=== PATIENT | male | born 1970 | race Caucasian/White ===

== ENCOUNTER 2020-09-11 01:21 | Inpatient (IN) | payer OTHER, SELFPAY ==
--- NOTE | ~2020-09-11 | CT_ITS ---
EXAMINATION: CT HEAD WITHOUT CONTRAST CLINICAL INFORMATION: Headache COMPARISON: None TECHNIQUE: Contiguous axial imaging was performed from the skull base to vertex without intravenous administration of contrast. This CT examination was performed using dose optimization techniques as appropriate, variously including the following: *Automated exposure control *Adjustment of mA and/or kV according to patient size (this includes techniques or standardized protocols for targeted exams where dose is matched to indication/reason for exam; i.e. extremities or head) *Use of iterative reconstruction technique DLP: 869 mGy-cm FINDINGS: There is no evidence of acute intracranial hemorrhage or territorial infarction. No abnormal mass effect or midline shift is seen. Can to white matter differentiation is well preserved. No extra-axial fluid collections are identified. The ventricles are normal in size. There is no abnormal attenuation within the brain parenchyma. The osseous structures and soft tissues are normal. The mastoid air cells and visualized portions of the paranasal sinuses are well aerated. CT/CT head/brain wo con IMPRESSION: No acute intracranial pathology.
--- NOTE | ~2020-09-11 | CT_ITS ---
EXAMINATION: CT ANGIOGRAM NECK WITH CONTRAST CT ANGIOGRAM BRAIN WITH CONTRAST CLINICAL INFORMATION: TIA. COMPARISON: Head CT performed just prior. TECHNIQUE: Test bolus sequences followed by intravenous administration 70 mL of Omnipaque 350. Helical imaging was performed in the axial plane from the thoracic inlet to the skull vertex. Delayed postcontrast imaging of the head was also performed. The data was processed at the radiology technologist workstation for generation of MIP sequences. Angled MIPs and volume rendered reformatted images were also generated at an offline 3D workstation. Stenoses are assessed in accordance with NASCET criteria unless otherwise indicated. This CT examination was performed using dose optimization techniques as appropriate, variously including the following: *Automated exposure control *Adjustment of mA and/or kV according to patient size (this includes techniques or standardized protocols for targeted exams where dose is matched to indication/reason for exam; i.e. extremities or head) *Use of iterative reconstruction technique DLP: 1697 mGy-cm FINDINGS: Head CT: There is no intracranial hemorrhage, large acute infarction, or mass lesion. The ventricles are normal in size and configuration without evidence of hydrocephalus. There is no abnormal enhancement. The dural venous sinuses are normally opacified. The visualized paranasal sinuses and mastoid air cells are clear. Neck CTA: There is a normal aortic arch with no significant stenosis of the great vessel origins. The common and internal carotid arteries are normal in course and caliber. Both vertebral arteries are widely patent throughout their extracranial cervical course. Head CTA: No intracranial aneurysm is seen. The intracranial internal carotid arteries appear normal. The anterior cerebral artery, anterior communicating artery, and middle cerebral arteries appear normal. The intradural vertebral arteries and basilar artery appear normal. The posterior cerebral arteries appear normal. origin of the left posterior cerebral artery is noted. Non-vascular findings: The cervical spine appears intact. No significant cervical soft tissue abnormality is seen CT/CT angio head neck IMPRESSION: CT head: No intracranial hemorrhage or large acute infarction. CTA neck: No hemodynamically significant stenosis in the major arteries of the neck. CTA head: No large vessel occlusion or significant stenosis within the intracranial circulation.
--- NOTE | ~2020-09-11 | US_ITS ---
EXAMINATION: US EXTRACRANIAL CAROTID DUPLEX, BILATERAL CLINICAL INFORMATION: TIA COMPARISON: None TECHNIQUE: Real-time ultrasound and Doppler techniques (integrating B-mode 2-D vascular images, Doppler spectral analysis and color-flow Doppler imaging) were utilized to interrogate the extracranial carotid arteries, the vertebral arteries and proximal subclavian arteries bilaterally. The degree of stenosis is determined by criteria similar to NASCET. FINDINGS: Right Side: 1. There is trace atherosclerotic plaque seen in the bifurcation/proximal ICA region. 2. The common carotid artery PSV proximally is 165 cm/s and distally 120 cm/s. 3. The proximal internal carotid artery velocities are 56.7 cm/s systolic and 18.9 cm/s diastolic. 4. The proximal external carotid artery PSV is 87.8 cm/s. 5. The vertebral artery shows antegrade flow. 6. The subclavian artery waveforms are normal, peak systolic velocity 149 cm/s. Left Side: 1. There is trace atherosclerotic plaque seen in the bifurcation/proximal ICA region. 2. The common carotid artery PSV proximally is 207 cm/s and distally 125 cm/s. 3. The proximal internal carotid artery velocities are 75.2 cm/s systolic and 13.7 cm/s diastolic. 4. The proximal external carotid artery PSV is 77.7 cm/s. 5. The vertebral artery shows antegrade flow. 6. The subclavian artery waveforms are normal, peak systolic velocity 204 cm/s. US/US carotid duplex BI IMPRESSION: 1. RIGHT: Minimal, non-hemodynamically significant stenosis of the proximal right internal carotid artery corresponding to a 0-49% stenosis by velocity criteria. 2. LEFT: Minimal, non-hemodynamically significant stenosis of the proximal left internal carotid artery corresponding to a 0-49% stenosis by velocity criteria.
[2020-09-11 01:46] VITALS: BP 114/51; PULSE 77; RESP 18; TEMP 37.2; O2SAT 94; BMI 40.1
[2020-09-11 02:03] LABS: Glucose, Whole Blood 307 mg/dL (60-115)
[2020-09-11 02:07] VITALS: BP 120/73; PULSE 76; O2SAT 100
[2020-09-11 02:18] LABS: Basophils Percent Auto 0.5 % (0-2); Eosinophils Absolute Auto 0.2 X10*3/uL (0.0-0.4); Eosinophils Percent Auto 2.1 % (0-4); Hematocrit 36.9 % (42-52); Hemoglobin 12.8 g/dl (14.0-18.0); Imm Gran Abs Auto 0.03 X10*3/uL (0.00-0.03); Imm Gran Pct Auto 0.4 % (0.0-0.4); Lymphocytes Absolute Auto 2.6 X10*3/uL (1.2-4.9); Lymphocytes Percent Auto 35.9 % (20-40); MANUAL DIFF FLAG NO; Mean Corpuscular HGB Conc 34.7 g/dl (31.0-36.0); Mean Corpuscular Hemoglobin 31.4 pg (27.0-33.0); Mean Corpuscular Volume 90.7 fL (80-98); Mean Platelet Volume 9.4 fL (9.4-12.4); Monocytes Absolute Auto 0.5 X10*3/uL (0.1-1.2); Monocytes Percent Auto 7.4 % (2-11); Neutrophils Absolute Auto 3.9 X10*3/uL (2.0-8.3); Neutrophils Percent Auto 53.7 % (45-73); Platelet Count 241 X10*3/uL (160-400); Red Blood Count 4.07 X10*6/uL (4.60-5.80); White Blood Count 7.3 X10*3/uL (4.8-10.8)
[2020-09-11 02:24] LABS: Prothrombin Time 12.2 SEC (10.8-13.0)
[2020-09-11 02:46] LABS: Alanine Aminotransferase 41 U/L (0-40); Albumin Level 4.3 g/dL (3.5-5.0); Alkaline Phosphatase 125 U/L (39-117); Anion Gap 15 (12-20); Aspartate Amino Transferase 18 U/L (5-37); Bilirubin Total 0.6 mg/dL (0.0-1.0); Blood Urea Nitrogen 18 mg/dL (9-16); Calcium 9.3 mg/dL (8.4-10.2); Carbon Dioxide 24 mmol/L (22-29); Chloride 102 mmol/L (96-108); Creatinine Clr Calc Pharmacy 131.1; Estimated Glomerular Filt Rate > 60; Glucose Random 315 mg/dL (60-115); Potassium 4.1 mmol/L (3.3-5.1); Sodium 137 mmol/L (135-145); Total Protein 6.4 g/dL (6.5-8.0)
--- NOTE | 2020-09-11 03:09 | ED.GENADULT ---
HPI - General Adult General Chief complaint: General Medical Stated complaint: Vision loss Time Seen by Provider: 09/11/20 03:09 History of Present Illness HPI narrative: 50-year-old male with a history diabetes, hypertension, high cholesterol. Previous history of smoking. Patient has sudden onset of changes and vision over the left eye. The medial aspect of the visual field is gone away along with weakness to the left leg. The symptoms seems to have resolved after approximately 30 minutes. Patient had no symptom on arrival in emergency department. There was no fever no chills. No chest pain or shortness breath no diaphoresis. Patient is from home. No coughing or congestion or upper respiratory symptoms. No history of TIAs in the past. Positive history of hypertension, high cholesterol. No family history of coronary artery disease. No travel history. Patient is from home. Related Data Home Medications Medication Instructions Recorded Confirmed amlodipine 1 tab PO DAILY 09/11/20 09/11/20 atorvastatin 1 tab PO DAILY 09/11/20 09/11/20 citalopram 1 tab PO DAILY 09/11/20 09/11/20 losartan 1 tab PO DAILY 09/11/20 09/11/20 Allergies Allergy/AdvReac Type Severity Reaction Status Date / Time No Known Allergies Allergy Verified 09/11/20 02:21 [No Known Allergies*] Review of Systems Review of Systems: Constitutional: No Weight loss, No Fever, No Chills, No Night Sweats, No Fatigue, No Malaise ENT/Mouth: No Hearing loss, No Ear Pain, No Nasal Congestion, No Sinus Pain, No Hoarseness, No sore throat, No Rhinorrhea, No Swallowing Difficulty Eyes: No Eye Pain, No Swelling, No Redness, No Foreign Body, No Discharge, positive Vision Changes Cardiovascular: No Chest Pain, No SOB, No Dyspnea on Exertion, No Orthopnea, No Edema, No Palpitations Respiratory: No Cough, No Sputum, No Wheezing, No Smoke Exposure, No Dyspnea Gastrointestinal: No Nausea, No Vomiting, No Diarrhea, No Constipation, No abdominal Pain, No Hematochezia, No Melena Genitourinary: no irregular bleeding, No Dysuria, No Urinary Frequency, No Hematuria, No Urinary Incontinence, No Urgency, No Flank Pain, No Urinary Flow Changes, No Hesitancy Musculoskeletal: No joint pain, No Myalgias, No Joint Swelling Skin: No Skin Lesions, No rash Neuro: No Weakness, No Numbness, No Paresthesias, No Loss of Consciousness, No Dizziness, No Headache Psych: No Anxiety/Panic, No Depression, No SI/HI/AH/VH, No Social Issues, Heme/Lymph: No Bruising, No Bleeding,No Lymphadenopathy Endocrine: No Polyuria, No Polydipsia, No Temperature Intolerance [facility] Past Medical History Attestation statement: The following information was validated with the patient. Medical History High blood pressure History of prediabetes Obese Social History Social History Advance Directives: No Physical Exam Vital Signs: Vital Signs: Last Vital Signs Temp 98.9 F 09/11/20 01:46 Pulse 72 09/11/20 04:00 Resp 15 09/11/20 04:00 BP 111/59 L 09/11/20 04:00 Pulse Ox 96 09/11/20 04:00 Body Mass Index 40.1 Appearance: Alert. Oriented X3. No acute distress. Eyes: Pupils equal, round and reactive to light. ENT: Pharynx normal. Neck: Normal inspection. Neck supple. No lymph nodes noted. No crepitus CVS: Normal heart rate and rhythm. Pulses normal. Normal S1 and S2 Respiratory: No respiratory distress. Breath sounds normal. No Wheezing. No rales Abdomen: Soft and nontender. No rigidity. No distention. good BS x4 Skin: Skin warm and dry. Normal skin color. Normal skin turgor. Extremities: No lower extremity edema. Neurovascular intact to all extremities. No Lacerations. No Rash Neuro: Oriented X 3. No sensory deficit. Moving all extermities. No slurred speech. Visual feel which patient claims were office completely back to normal. There is no weakness in upper lower extremity. NIH Stroke Scale Internal: Initial- Upon Arrival Level of Consciousness: Responds only with reflex motor or autonomic effects, or unresponsive Level of Consciousness Questions: Answers both questions correctly Level of Consciousness Commands: Performs both tasks correctly Best Gaze: Normal Visual: No visual loss Facial Palsy: Normal Motor Arm (Right): No drift Motor Arm (Left): No drift Motor Leg (Right): No drift Motor Leg (Left): No drift Limb Ataxia: Absent Sensory: Normal Best Language: No aphasia Dysarthia: Normal Extinction and Inattention: No abnormality Score: 3 Medical Decision Making MDM Narrative Medical decision making narrative: Well appearing. No acute distress. Moving all extremities. Neurologically intact. Positive changes in vision and left-sided weakness earlier. That has resolved. Question TIA. Will admit for further monitoring. Currently in stable condition. CT the head was grossly negative for any acute evidence of bleeding. Patient is neurologically intact. NIH stroke scale is 0. Will admit for TIA close monitoring. EKG appears normal. In stable condition. Case discussed with hospitalist. Old record reviewed. Lab Data Result diagrams: 09/11/20 02:05 09/11/20 02:05 Labs: Lab Results 09/11/20 09/11/20 09/11/20 Range/Units 01:59 02:05 02:05 WBC 7.3 (4.8-10.8) X10*3/uL RBC 4.07 L (4.60-5.80) X10*6/uL Hgb 12.8 L (14.0-18.0) g/dl Hct 36.9 L (42-52) % MCV 90.7 (80-98) fL MCH 31.4 (27.0-33.0) pg MCHC 34.7 (31.0-36.0) g/dl RDW 12.0 (11.0-16.0) % Plt Count 241 (160-400) X10*3/uL MPV 9.4 (9.4-12.4) fL Immature Gran % (Auto) 0.4 (0.0-0.4) % Neut % (Auto) 53.7 (45-73) % Lymph % (Auto) 35.9 (20-40) % [place] % (Auto) 7.4 (2-11) % Eos % (Auto) 2.1 (0-4) % Baso % (Auto) 0.5 (0-2) % Lymph # (Auto) 2.6 (1.2-4.9) X10*3/uL [place] # (Auto) 0.5 (0.1-1.2) X10*3/uL Eos # (Auto) 0.2 (0.0-0.4) X10*3/uL Baso # (Auto) 0.0 (0.0-0.2) X10*3/uL Abs Immat Gran (auto) 0.03 (0.00-0.03) X10*3/uL Absolute Neuts (auto) 3.9 (2.0-8.3) X10*3/uL Absolute Nucleated RBC 0.000 (0.0-0.012) X10*3/uL Nucleated RBC % (auto) 0.0 (0.0-0.2) /100WBC PT 12.2 (10.8-13.0) SEC INR 1.0 (0.9-1.1) Sodium (135-145) mmol/L Potassium (3.3-5.1) mmol/L Chloride (96-108) mmol/L Carbon Dioxide (22-29) mmol/L Anion Gap (12-20) BUN (9-16) mg/dL Creatinine (0.5-1.4) mg/dL Estim Creat Clear Calc Estimated GFR POC Glucose 307 H (60-115) mg/dL Random Glucose (60-115) mg/dL Calcium (8.4-10.2) mg/dL Total Bilirubin (0.0-1.0) mg/dL AST (5-37) U/L ALT (0-40) U/L Alkaline Phosphatase (39-117) U/L Total Protein (6.5-8.0) g/dL Albumin (3.5-5.0) g/dL 09/11/20 Range/Units 02:05 WBC (4.8-10.8) X10*3/uL RBC (4.60-5.80) X10*6/uL Hgb (14.0-18.0) g/dl Hct (42-52) % MCV (80-98) fL MCH (27.0-33.0) pg MCHC (31.0-36.0) g/dl RDW (11.0-16.0) % Plt Count (160-400) X10*3/uL MPV (9.4-12.4) fL Immature Gran % (Auto) (0.0-0.4) % Neut % (Auto) (45-73) % Lymph % (Auto) (20-40) % [place] % (Auto) (2-11) % Eos % (Auto) (0-4) % Baso % (Auto) (0-2) % Lymph # (Auto) (1.2-4.9) X10*3/uL [place] # (Auto) (0.1-1.2) X10*3/uL Eos # (Auto) (0.0-0.4) X10*3/uL Baso # (Auto) (0.0-0.2) X10*3/uL Abs Immat Gran (auto) (0.00-0.03) X10*3/uL Absolute Neuts (auto) (2.0-8.3) X10*3/uL Absolute Nucleated RBC (0.0-0.012) X10*3/uL Nucleated RBC % (auto) (0.0-0.2) /100WBC PT (10.8-13.0) SEC INR (0.9-1.1) Sodium 137 (135-145) mmol/L Potassium 4.1 (3.3-5.1) mmol/L Chloride 102 (96-108) mmol/L Carbon Dioxide 24 (22-29) mmol/L Anion Gap 15 (12-20) BUN 18 H (9-16) mg/dL Creatinine 0.95 (0.5-1.4) mg/dL Estim Creat Clear Calc 131.1 Estimated GFR > 60 POC Glucose (60-115) mg/dL Random Glucose 315 H (60-115) mg/dL Calcium 9.3 (8.4-10.2) mg/dL Total Bilirubin 0.6 (0.0-1.0) mg/dL AST 18 (5-37) U/L ALT 41 H (0-40) U/L Alkaline Phosphatase 125 H (39-117) U/L Total Protein 6.4 L (6.5-8.0) g/dL Albumin 4.3 (3.5-5.0) g/dL ECG Data Interpretation: Sinus heart rate is 80 [place] QRS QT within normal limits there is no acute ST segment elevated noted Discharge Plan Discharge Prescriptions: No Action losartan 50 mg tablet 1 tab PO DAILY RF: 0 atorvastatin 40 mg tablet 1 tab PO DAILY RF: 0 citalopram 20 mg tablet 1 tab PO DAILY RF: 0 amlodipine 10 mg tablet 1 tab PO DAILY RF: 0
--- NOTE | 2020-09-11 03:20 | ECG_ITS ---
Test Reason : WEAKNESS.CP.VISION Blood Pressure : / mmHG Vent. Rate : 079 BPM Atrial Rate : 079 BPM P-R Int : 148 ms QRS Dur : 092 ms QT Int : 386 ms P-R-T Axes : 017 -01 014 degrees QTc Int : 442 ms Normal sinus rhythm Minimal voltage criteria for LVH, may be normal variant Borderline ECG No previous ECGs available Referred By: Janett Padilla Electronically Signed By:NOHEMY MARTELL MD
[2020-09-11 04:00] VITALS: BP 111/59; PULSE 72; RESP 15; O2SAT 96
--- NOTE | 2020-09-11 04:36 | P.HPHOSP_ITS ---
History of Present Illness Date of Service: 09/11/20 Chief Complaint: Left leg weakness: 50-year-old male with a past medical history of hypertension, hyperlipidemia, depression, history of tobacco use presented to the hospital with a chief complaint of left eye vision changes-reported that the medial side of his vision he was not able to see; present also noted left leg weakness. Denies any numbness tingling. Symptoms lasted for about 30 minutes. Denies any associated chest pain lightheadedness dizziness. Denies any chest pain or palpitations. Denies any GI or symptoms. Denies any headaches. Denies any recent travel or sick contacts. Review of all other systems is negative except mentioned above ER course: Per ER team patient symptoms resolved. Currently patient exam is nonfocal. CT head showed no acute findings. Vitals stable. Admitted to the hospital for further management. [facility] Medical History High blood pressure History of prediabetes Obese Meds Allergies Allergy/AdvReac Type Severity Reaction Status Date / Time No Known Allergies Allergy Verified 09/11/20 02:21 [No Known Allergies*] Active Medications: Current Medications Generic Name Dose Route Start Last Admin Trade Name Freq PRN Reason Stop Dose Admin Acetaminophen 650 mg 09/11/20 04:29 Acetaminophen 325 Mg Tablet PO Q6H PRN Pain, Mild (Pain Scale 1-3) Amlodipine Besylate 10 mg 09/11/20 09:00 Amlodipine Besylate 10 Mg Tablet PO DAILY [facility] Protocol Aspirin 81 mg 09/11/20 09:00 Aspirin Enteric Coated 81 Mg Tablet.Dr PO DAILY [facility] Atorvastatin Calcium 40 mg 09/11/20 09:00 Atorvastatin Calcium 40 Mg Tablet PO DAILY [facility] Losartan Potassium 50 mg 09/11/20 09:00 Losartan Potassium 50 Mg Tablet PO DAILY [facility] Protocol Non-Formulary Medication 1 tab 09/11/20 09:00 Citalopram PO DAILY [facility] Sodium Chloride 3 ml 09/11/20 08:00 0.9 % Sodium Chloride Flush 3 Ml Syringe IVFLUSH QSHIFT [facility] Home Medications Medication Instructions Recorded Confirmed Last Taken Type amlodipine 1 tab PO DAILY 09/11/20 09/11/20 09/10/20 History citalopram 1 tab PO DAILY 09/11/20 09/11/20 09/10/20 History losartan 1 tab PO DAILY 09/11/20 09/11/20 09/10/20 History Physical Exam Vital Signs and Narrative: Vital Signs: Last Vital Signs Temp 98.9 F 09/11/20 01:46 Pulse 72 09/11/20 04:00 Resp 15 09/11/20 04:00 BP 111/59 L 09/11/20 04:00 Pulse Ox 96 09/11/20 04:00 Body Mass Index 40.1 Gen: Appears be in no acute distress HEENT: NCAT, Moist mucosa. CONSTANTIN Pulmonary: Vesicular breath sounds, fair air entry CVS: Normal S1-S2 Abdomen: BS+, Soft, Nontender Extremities: Warm well perfused Neuro: Alert and awake. Nonfocal exam Results Labs CBC and Chem 7: 09/11/20 06:36 09/11/20 06:36 Labs: Laboratory Results - last 24 hr 09/11/20 09/11/20 09/11/20 01:59 02:05 02:05 MCV 90.7 MCH 31.4 MCHC 34.7 RDW 12.0 Plt Count 241 MPV 9.4 Immature Gran % (Auto) 0.4 Neut % (Auto) 53.7 Lymph % (Auto) 35.9 [place] % (Auto) 7.4 Eos % (Auto) 2.1 Baso % (Auto) 0.5 Lymph # (Auto) 2.6 [place] # (Auto) 0.5 Eos # (Auto) 0.2 Baso # (Auto) 0.0 Abs Immat Gran (auto) 0.03 Absolute Neuts (auto) 3.9 Absolute Nucleated RBC 0.000 Nucleated RBC % (auto) 0.0 PT 12.2 INR 1.0 Anion Gap Estim Creat Clear Calc Estimated GFR POC Glucose 307 H Random Glucose Calcium Total Bilirubin AST ALT Alkaline Phosphatase Total Protein Albumin 09/11/20 02:05 MCV MCH MCHC RDW Plt Count MPV Immature Gran % (Auto) Neut % (Auto) Lymph % (Auto) [place] % (Auto) Eos % (Auto) Baso % (Auto) Lymph # (Auto) [place] # (Auto) Eos # (Auto) Baso # (Auto) Abs Immat Gran (auto) Absolute Neuts (auto) Absolute Nucleated RBC Nucleated RBC % (auto) PT INR Anion Gap 15 Estim Creat Clear Calc 131.1 Estimated GFR > 60 POC Glucose Random Glucose 315 H Calcium 9.3 Total Bilirubin 0.6 AST 18 ALT 41 H Alkaline Phosphatase 125 H Total Protein 6.4 L Albumin 4.3 Imaging Radiologist's Impressions: Impressions Head CT 09/11/20 03:20 IMPRESSION: No acute intracranial pathology. Assessment and Plan (1) TIA (transient ischemic attack): Status: Acute 50-year-old male with a past medical history of hypertension, hyperlipidemia, depression, ex-smoker presented to the hospital with a chief c omplaint of left eye visual field deficits/left leg weakness. Symptoms lasted for 30 minutes and subsequently resolved. Admitted for possible TIA. TIA: Patient's currently asymptomatic. Neuro checks. Telemetry. Cycle cardiac enzymes. Echocardiogram with bubble study. Neurology consult for fu rther recommendations. Will also obtain carotid duplex. Will keep the patient on aspirin. Patient is already on statin at home. Hypertension/hyperlipidemia: Continue home medications. DVT prophylaxis: SCD boots Code status: Full code
[2020-09-11 05:33] LABS: COVID-19 Test Negative (Negative)
[2020-09-11 05:51] VITALS: BP 128/63; PULSE 73; RESP 15; O2SAT 93
[2020-09-11] MEDS: Aspirin 325 MG TABLET PO (05:57)
[2020-09-11 06:48] LABS: MANUAL DIFF FLAG NO
[2020-09-11 06:58] LABS: Basophils Percent Auto 0.5 % (0-2); Eosinophils Absolute Auto 0.1 X10*3/uL (0.0-0.4); Eosinophils Percent Auto 1.9 % (0-4); Hematocrit 35.8 % (42-52); Hemoglobin 12.2 g/dl (14.0-18.0); Imm Gran Abs Auto 0.03 X10*3/uL (0.00-0.03); Imm Gran Pct Auto 0.5 % (0.0-0.4); Lymphocytes Absolute Auto 2.2 X10*3/uL (1.2-4.9); Lymphocytes Percent Auto 35.7 % (20-40); Mean Corpuscular HGB Conc 34.1 g/dl (31.0-36.0); Mean Corpuscular Hemoglobin 30.8 pg (27.0-33.0); Mean Corpuscular Volume 90.4 fL (80-98); Mean Platelet Volume 9.6 fL (9.4-12.4); Monocytes Absolute Auto 0.5 X10*3/uL (0.1-1.2); Monocytes Percent Auto 8.1 % (2-11); Neutrophils Absolute Auto 3.3 X10*3/uL (2.0-8.3); Neutrophils Percent Auto 53.3 % (45-73); Platelet Count 237 X10*3/uL (160-400); Red Blood Count 3.96 X10*6/uL (4.60-5.80); Red Cell Distribution Width 11.9 % (11.0-16.0); White Blood Count 6.2 X10*3/uL (4.8-10.8)
--- NOTE | 2020-09-11 07:00 | PC.NURSE ---
report taken from james younger pt resting in bed supine att, rr even unlabored. pt easily alert to verbal stimuli, very pleasant in convo. pt being admitted for ?tia, neuros grossly intact, pt appears in no apparent distress. awaiting hospitalist eval and bed assignment. wctm.
--- NOTE | 2020-09-11 07:27 | PC.NURSE ---
ambulated to and from bathroom using steady gait. breakfast tray placed at pt bedside.
[2020-09-11 07:31] LABS: Troponin-I High Sensitivity < 3.5 ng/L (<3.5-35.0)
[2020-09-11 07:35] LABS: Anion Gap 16 (12-20); Blood Urea Nitrogen 18 mg/dL (9-16); Carbon Dioxide 20 mmol/L (22-29); Chloride 105 mmol/L (96-108); Cholesterol 182 mg/dL; Estimated Glomerular Filt Rate > 60; Glucose Random 293 mg/dL (60-115); HDL Cholesterol 28 mg/dL; LDL Cholesterol Calculated 95 mg/dl; Potassium 4.3 mmol/L (3.3-5.1); Sodium 137 mmol/L (135-145); Triglycerides 299 mg/dL
[2020-09-11 09:28] VITALS: BP 128/63; PULSE 86; O2SAT 94
--- NOTE | 2020-09-11 11:20 | CA_ITS ---
Transthoracic Echocardiogram Patient (Last, First, Middle): Artemio Epperson, Gender: Male Date of : 1970 Age: 50 Procedure Date: 09/11/2020 Procedure Type: Transthoracic Echocardiogram Location: ER Height: 180.34 cm Weight: 130.64 kg BSA: 2.46 m2 Heart Rate: bpm Quitline Counselor: HUNTER Referring MD: Herber Cheng MD Customs Inspector: Jim Mirza MD Symptoms: tia Study Quality: Technically Difficult ECG Rhythm: Sinus Conclusions: - 1. Technically very limited study due to patient's body habitus with limited endocardial definition 2. LV systolic function appears to be normal with LVEF of 60 65% with normal diastolic filling 3. Cardiac valves not well visualized but within normal limits cardiac valvular Doppler Findings Left Ventricle Normal left ventricular cavity size. The left ventricular systolic function is normal. The visually estimated ejection fraction is between 60-65%. Regional wall motion abnormalities can not be excluded due to suboptimal endocardial definition. Spectral Doppler is indicative of a normal filling pattern. Right Ventricle Mildly increased right ventricular cavity size. Atria The left atrium was not well visualized. Interatrial shunt cannot be excluded. The right atrium was not well visualized. Aortic Valve The aortic valve was not well visualized. There is no aortic valve stenosis. There is no aortic valve regurgitation. Mitral Valve Likely normal mitral valve structure and function. There is no mitral valve regurgitation. There is no mitral valve stenosis. Pulmonic Valve The pulmonic valve was not well visualized. Tricuspid Valve The tricuspid valve was not well visualized. Tricuspid regurgitation envelope is inadequate for calculation of right ventricular systolic pressure. Great Vessels The aorta was not well visualized. The pulmonary artery was not well visualized. Venous The inferior vena cava is normal in size and collapses greater than 50% with inspiration. Pericardium/Pleural The pericardium was not well visualized. Prior Study Comparison No prior study available for comparison. Recommendations, Care & Conclusions Recommend contrast in the future to improve endocardial definition and contrast study to evaluate intracardiac shunting. Updated in Other Vendor System with Status of Final Jim Mirza MD electronically signed on 09/11/2020 3:11:41 PM with status of Final
[2020-09-11] MEDS: iohexoL 350 MG/ML 100 ML INFUS..BTL IV (15:16)
--- NOTE | 2020-09-11 16:31 | P.DS_ITS ---
DS: Providers Provider Date of Service: 09/11/20 Date of admission: 09/11/20 04:29 Primary care physician: Dejan Gaona MD Consults: 09/11/20 04:30 Consult to Neurology Routine Consulting Provider: Paul Li Reason for consultation: left Eye blurry vision; left leg weakness; DS: Diagnosis Discharge Diagnosis (1) TIA (transient ischemic attack): Status: Acute DS: Medications Discharge Medications Home Medications: Home Medications Medication Instructions Recorded Confirmed amlodipine 1 tab PO DAILY 09/11/20 09/11/20 citalopram 1 tab PO DAILY 09/11/20 09/11/20 losartan 1 tab PO DAILY 09/11/20 09/11/20 Previous Rx's Medication Instructions Recorded aspirin 81 mg PO BEDTIME #30 tab 09/11/20 atorvastatin 60 mg PO BEDTIME #90 tab 09/11/20 DS: Summary Hospital Course Hospital Course: 50-year-old male with a past medical history of hypertension, hyperlipidemia, depression, history of tobacco use presented to the hospital with a chief complaint of left eye vision changes-reported that the medial side of his vision he was not able to see; present also noted left leg weakness. Denies any numbness tingling. Symptoms lasted for about 30 minutes. Denies any associated chest pain lightheadedness dizziness. Denies any chest pain or palpitations. ER course: Per ER team patient symptoms resolved. Currently patient exam is nonfocal. CT head showed no acute findings. Vitals stable. Admitted to the hospital for fur ther management. On my interview patient reported that he had lacrimation of his eyes and nose as well as a mild headache that was around his left eye. He currently has no neurological symptoms, his vision is normal with no deficits. CT angiogram of head and neck was negative, lipid battery shows an LDL of 95. Case was discussed with Neurology, given the fact the our MRI machine is currently not functioning patient will be discharged on aspirin, atorvastatin will be increased to 60 mg and to follow-up with PCP for outpatient MRI. Patient notified and he will follow-up with PCP to also refer him to Neurology. Time Spent with Patient Time attestation: Total time spent providing and/or coordinating discharge servi wesly: Discharge coordination time: Greater than 30 minutes Quality: Stroke Does the patient have a stroke diagnosis?: Yes Reason for No Anti-thrombotic at DC: N/A - Med Ordered Reason for No Anticoagulant at DC: Drug treatment not indicated Reason Not Initiating IV-Tpa: Drug treatment not indicated Reason for No Anti-thrombotic by Day Two: Drug treatment not indicated Reason for No Statin at DC: N/A - Med Ordered Physical Exam Vital Signs: Vital Signs: Last Vital Signs Temp 98.9 F 09/11/20 01:46 Pulse 86 09/11/20 09:28 Resp 15 09/11/20 05:51 BP 128/63 09/11/20 09:28 Pulse Ox 94 09/11/20 09:28 Body Mass Index 40.1 Const: General: cooperative and no acute distress Orie ntation/consciousness: patient oriented x3 Eyes: General: appearance normal, both eyes and all related structures Resp: Effort & Inspection: normal respiratory effort and able to speak in complete sentences Cardio: Rate: regular rate Rhythm: regular rhythm GI: Palpation (GI): Soft to palpation Auscultation: normal bowel sounds Skin: General skin exam: no rashes or lesions noted Neuro: Other: No neurological deficits, no visual defect, strength is 5/5 in all extremities General: patient oriented x3 Cognition (Neuro): normal cogni tion Extrem: General: Yes normal to inspection and Yes no pedal edema DS: Data Data Completed and Pending Labs on day of discharge: Laboratory Results - last 24 hr 09/11/20 09/11/20 09/11/20 01:59 02:05 02:05 WBC 7.3 RBC 4.07 L Hgb 12.8 L Hct 36.9 L MCV 90.7 MCH 31.4 MCHC 34.7 RDW 12.0 Plt Count 241 MPV 9.4 Immature Gran % (Auto) 0.4 Neut % (Auto) 53.7 Lymph % (Auto) 35.9 [place] % (Auto) 7.4 Eos % (Auto) 2.1 Baso % (Auto) 0.5 Lymph # (Auto) 2.6 [place] # (Auto) 0.5 Eos # (Auto) 0.2 Baso # (Auto) 0.0 Abs Immat Gran (auto) 0.03 Absolute Neuts (auto) 3.9 Absolute Nucleated RBC 0.000 Nucleated RBC % (auto) 0.0 PT 12.2 INR 1.0 Sodium Potassium Chloride Carbon Dioxide Anion Gap BUN Creatinine Estim Creat Clear Calc Estimated GFR POC Glucose 307 H Random Glucose Calcium Total Bilirubin AST ALT Alkaline Phosphatase Troponin I High Sens Total Protein Albumin Triglycerides Cholesterol LDL Cholesterol, Calc HDL Cholesterol COVID-19 (TANESHA) COVID-19 HeyAnita Com 09/11/20 09/11/20 09/11/20 02:05 05:09 06:36 WBC RBC Hgb Hct MCV MCH MCHC RDW Plt Count MPV Immature Gran % (Auto) Neut % (Auto) Lymph % (Auto) [place] % (Auto) Eos % (Auto) Baso % (Auto) Lymph # (Auto) [place] # (Auto) Eos # (Auto) Baso # (Auto) Abs Immat Gran (auto) Absolute Neuts (auto) Absolute Nucleated RBC Nucleated RBC % (auto) PT INR Sodium 137 Potassium 4.1 Chloride 102 Carbon Dioxide 24 Anion Gap 15 BUN 18 H Creatinine 0.95 Estim Creat Clear Calc 131.1 Estimated GFR > 60 POC Glucose Random Glucose 315 H Calcium 9.3 Total Bilirubin 0.6 AST 18 ALT 41 H Alkaline Phosphatase 125 H Troponin I High Sens < 3.5 Total Protein 6.4 L Albumin 4.3 Triglycerides Cholesterol LDL Cholesterol, Calc HDL Cholesterol COVID-19 (TANESHA) Negative COVID-19 Clin Com See Note 09/11/20 09/11/20 06:36 06:36 WBC 6.2 RBC 3.96 L Hgb 12.2 L Hct 35.8 L MCV 90.4 MCH 30.8 MCHC 34.1 RDW 11.9 Plt Count 237 MPV 9.6 Immature Gran % (Auto) 0.5 H Neut % (Auto) 53.3 Lymph % (Auto) 35.7 [place] % (Auto) 8.1 Eos % (Auto) 1.9 Baso % (Auto) 0.5 Lymph # (Auto) 2.2 [place] # (Auto) 0.5 Eos # (Auto) 0.1 Baso # (Auto) 0.0 Abs Immat Gran (auto) 0.03 Absolute Neuts (auto) 3.3 Absolute Nucleated RBC 0.000 Nucleated RBC % (auto) 0.0 PT INR Sodium 137 Potassium 4.3 Chloride 105 Carbon Dioxide 20 L Anion Gap 16 BUN 18 H Creatinine 0.83 Estim Creat Clear Calc 150.0 Estimated GFR > 60 POC Glucose Random Glucose 293 H Calcium 9.0 Total Bilirubin AST ALT Alkaline Phosphatase Troponin I High Sens Total Protein Albumin Triglycerides 299 Cholesterol 182 LDL Cholesterol, Calc 95 HDL Cholesterol 28 COVID-19 (TANESHA) COVID-19 Clin Com Discharge Plan Discharge Patient Disposition: Home, Self-Care Discharge Diagnosis: cluster headache vs TIA Referrals: Dejan Gaona MD [Primary Care Provider] - 1 Week Paul Li MD [Physician] - 1 Week Discharge Medications: New atorvastatin 40 mg Tablet 60 mg PO BEDTIME Qty: 90 RF: 0 aspirin 81 mg Tablet,Delayed Release (Dr/Ec) 81 mg PO BEDTIME Qty: 30 RF: 0 Continued losartan 50 mg tablet 1 tab PO DAILY RF: 0 citalopram 20 mg tablet 1 tab PO DAILY RF: 0 amlodipine 10 mg tablet 1 tab PO DAILY RF: 0 Discontinued atorvastatin 40 mg tablet 1 tab PO DAILY RF: 0 Discharge Orders: Discharge Order (Routine); Ordered 09/11/20 Ordered By: Lucien Valdivia Diet: advance to usual diet Activity on Discharge: As tolerated Stand Alone Forms: Patient Portal Discharge page Care Plan Goals: Recovery, avoid hospitalization Health Concerns: recurrence of symptoms Plan of Treatment: Please started taking high dose statin 60 mg as well as ASA. follow with PCP to have outpatient MRI scheduled Assessment: Presented with vision changes possibly secondary to transient ischemic event versus cluster headache Please follow-up with PCP to order MRI outpatient Start taking atorvastatin 60 mg at bedtime, aspirin 81 mg daily
== END 2020-09-11 16:56 | disposition home or self-care (01) | DRG 47 ==
LOC: HO.ED 03:03 → HO.EDOVER 06:17 → HO.IMC 15:49
PROVIDERS: Admitting Provider Hospitalist; Emergency Provider Emergency Medicine Emergency Medical Services; PCP Internal Medicine; Visit Provider Internal Medicine
DX: G45.9 Transient cerebral ischemic attack, unspecified (principal); E78.5 Hyperlipidemia, unspecified; I10 Essential (primary) hypertension; Z20.822 Contact with and (suspected) exposure to COVID-19; F32.9 Major depressive disorder, single episode, unspecified; Z79.82 Long term (current) use of aspirin; Z79.899 Other long term (current) drug therapy
CPT/HCPCS: 36415; 70450; 70496; 70498; 80048; 80053; 80061; 82947; 84484; 85025; 85610; 87635; 93005; 93306; 93880; 97161; 99219; 99284; Q9967

== ENCOUNTER 2023-09-08 19:47 | Emergency (ER) | payer OTHER, SELFPAY ==
--- NOTE | ~2023-09-08 | XR_ITS ---
EXAMINATION: XR CHEST CLINICAL INFORMATION: Chest pain and dyspnea. COMPARISON: Chest radiograph dated 10/03/2019. TECHNIQUE: Frontal view of the chest was obtained. FINDINGS: Heart size is normal. The lungs are clear. There is no pleural effusion or pneumothorax. There is no acute osseous abnormality. XR/XR chest 1V IMPRESSION: No acute cardiopulmonary disease.
--- NOTE | 2023-09-08 19:51 | ECG_ITS ---
Test Reason : SOB/CP Blood Pressure : / mmHG Vent. Rate : 084 BPM Atrial Rate : 084 BPM P-R Int : 130 ms QRS Dur : 092 ms QT Int : 384 ms P-R-T Axes : - -12 degrees QTc Int : 453 ms Normal sinus rhythm Minimal voltage criteria for LVH, may be normal variant ( R in aVL ) Borderline ECG When compared with ECG of 11-SEP-2020 01:59, No significant change was found Referred By: Generic ED Physician Electronically Signed By:NOHEMY MARTELL MD
[2023-09-08 19:55] VITALS: BP 124/85; BP 146/90; PULSE 87; PULSE 88; RESP 13; TEMP 37.1; O2SAT 98; O2SAT 99; BMI 34.9
[2023-09-08 20:17] LABS: MANUAL DIFF FLAG NO
[2023-09-08 20:19] LABS: Basophils Absolute Auto 0.1 X10*3/uL (0.0-0.2); Basophils Percent Auto 0.4 % (0-2); Eosinophils Absolute Auto 0.1 X10*3/uL (0.0-0.4); Eosinophils Percent Auto 0.4 % (0-4); Hematocrit 38.4 % (42.0-52.0); Hemoglobin 13.8 g/dl (14.0-18.0); Imm Gran Abs Auto 0.07 X10*3/uL (0.00-0.03); Imm Gran Pct Auto 0.5 % (0.0-0.4); Lymphocytes Absolute Auto 3.4 X10*3/uL (1.2-4.9); Lymphocytes Percent Auto 26.3 % (20-40); Mean Corpuscular HGB Conc 35.9 g/dl (31.0-36.0); Mean Corpuscular Hemoglobin 30.9 pg (27.0-33.0); Mean Corpuscular Volume 85.9 fL (80.0-98.0); Mean Platelet Volume 8.9 fL (9.4-12.4); Monocytes Absolute Auto 0.9 X10*3/uL (0.1-1.2); Neutrophils Absolute Auto 8.4 x10*3/uL (2.0-8.3); Neutrophils Percent Auto 65.4 % (45-73); Platelet Count 338 X10*3/uL (160-400); Red Blood Count 4.47 X10*6/uL (4.60-5.80); Red Cell Distribution Width 11.9 % (11.0-16.0); White Blood Count 12.9 X10*3/uL (4.8-10.8)
[2023-09-08 20:43] LABS: Alanine Aminotransferase 28 U/L (0-40); Albumin Level 4.4 g/dL (3.5-5.0); Alkaline Phosphatase 116 U/L (39-117); Anion Gap 14 (12-20); Aspartate Amino Transferase 22 U/L (5-37); Bilirubin Total 1.2 mg/dL (0.0-1.0); Blood Urea Nitrogen 15 mg/dL (9-16); Calcium 9.8 mg/dL (8.4-10.2); Carbon Dioxide 21 mmol/L (22-29); Chloride 111 mmol/L (96-108); Creatinine Clr Calc Pharmacy 98.2; Estimated Glomerular Filt Rate > 60; Glucose Random 127 mg/dL (60-115); Potassium 3.3 mmol/L (3.3-5.1); Sodium 143 mmol/L (135-145)
[2023-09-08 20:50] LABS: Troponin-I High Sensitivity 3.6 ng/L (<3.5-35.0)
[2023-09-08 21:07] VITALS: BP 124/73; PULSE 70; RESP 14; TEMP 36.6; O2SAT 97
--- NOTE | 2023-09-08 21:39 | ED_ITS ---
HPI - Chest Pain General Chief Complaint: Dyspnea Stated Complaint: Chest pain Time Seen by Provider: 09/08/23 20:32 Source: patient Mode of arrival: ambulatory History of Present Illness ED Provider: Dr Perez HPI narrative: 53-year-old male with history of diabetes presents from home with 3 days of intermittent chest pressure associated with shortness of breath not necessarily associated with exertion, denies any recent fevers or new cough and denies any GI or symptoms. Patient has recently been discharged from rehab facility for prescription drug use and was started on Wellbutrin and propanolol. Patient was discharged from this program 3 days ago. EMS administered 324 mg of aspirin and 100 mL of fluid. Related Data Home Medications ?Medication ?Instructions ?Recorded ?Confirmed amlodipine 10 mg tablet 1 tab PO DAILY 09/11/20 09/11/20 citalopram 20 mg tablet 1 tab PO DAILY 09/11/20 09/11/20 losartan 50 mg tablet 1 tab PO DAILY 09/11/20 09/11/20 Previous Rx's ?Medication ?Instructions ?Recorded aspirin 81 mg tablet,delayed 81 mg PO BEDTIME #30 tabs 09/11/20 release atorvastatin 40 mg tablet 60 mg (1.5 x 40 mg) PO BEDTIME #90 09/11/20 tabs Allergies Allergy/AdvReac Type Severity Reaction Status Date / Time No Known Allergies Allergy Verified 09/08/23 20:02 [No Known Allergies*] Review of Systems 2 Review of Systems: Pertinent positives and negatives as stated in HPI [facility] Past Medical History Source: nursing notes reviewed Medical History High blood pressure Obese History of prediabetes Social History Social History Smoked in Last 30 Days: No Use of substances other than those prescribed or required for medical reasons: Yes Substance Use Type: Opiates and Painkillers Substance Use Frequency: Chronic Longstanding Last Used Substance: Weeks (ago) Any prior treatment program specific to substance use: Yes Advance Directives: No Advance Directives Information Provided: Yes Do you have a plan to hurt others: No Plan Physical Exam 2 Vital Signs: Vital Signs: Last Vital Signs Temp 97.8 F 09/08/23 21:07 Pulse 70 09/08/23 21:07 Resp 14 09/08/23 21:07 BP 124/73 09/08/23 21:07 Pulse Ox 97 09/08/23 21:07 O2 Del Method Room Air 09/08/23 21:07 BMI result Body Mass Index 34.9 VITAL SIGNS: Reviewed. GENERAL: Well developed, well nourished, in no acute distress. HEAD: Normocephalic/atraumatic EYES: PERRLA, EOMI EARS: Ext canals without abnormality NOSE: Nares patent bilateral OROPHARYNX: no oral lesions noted, posterior pharynx clear NECK: Supple, no adenopathy LUNGS: Normal breath sounds. No adventitious sounds or accessory muscle use. SpO2<97> CARDIOVASCULAR: Regular rate and rhythm without noted murmurs ABDOMEN: Soft, non-tender, non-distended with bowel sounds. MUSCULOSKELETAL: No tenderness, deformities, or effusions noted on gross inspection. EXTREMITIES: No cyanosis, clubbing or edema. SKIN: Inspection of the skin reveals no rashes NEUROLOGIC: Alert and oriented x 4. Strength and sensation to light touch were grossly intact x 4. Medical Decision Making Medical Decision Making [facility] Narrative: 53-year-old male with history and clinical presentation, DDX: Anxiety attack, without fevers or new cough low clinical suspicion for pneumonia, patient does have a history of asthma, there is no evidence to suggest hypoxia. Will evaluate for less likely ACS. I reviewed all investigations and hematologic indices are significant for noninfectious leukocytosis and a stable normocytic anemia without thrombocytopenia. Chemistry indices negative for SOILA/electrolyte or liver enzyme derangements other than an isolated bump in bilirubin of 1.2 but does not complain or experience any intra-abdominal pain specifically no right upper quadrant pain or epigastric pain. High sensitivity troponin is detectable but not elevated and there are no acute changes on EKG. Chest x-ray is negative for infiltrate or venous congestion otherwise my interpretation is in agreement with radiology's impression. My interpretation is that patient is experiencing anxiety attacks, he self reports that he has not been taking the as needed propanolol and did miss 1 dose of his Wellbutrin which I counseled him is best to avoid. He is otherwise discharged home in stable condition with instructions to continue his medications as prescribed. Differential Diagnosis Differential Diagnoses: The differential diagnosis associated with the presentation includes Please see the discussion above Admission/Observation Consideration of admission/observation: Escalation of care including admission/observation considered Please see the discussion above Lab Data [facility] Lab Attestation statement: I reviewed the patient's lab results. Please see the discussion above 09/08/23 20:04 09/08/23 20:04 Labs: Lab Results 09/08/23 Range/Units 20:04 WBC 12.9 H (4.8-10.8) X10*3/uL RBC 4.47 L (4.60-5.80) X10*6/uL Hgb 13.8 L (14.0-18.0) g/dl Hct 38.4 L (42.0-52.0) % MCV 85.9 (80.0-98.0) fL MCH 30.9 (27.0-33.0) pg MCHC 35.9 (31.0-36.0) g/dl RDW 11.9 (11.0-16.0) % Plt Count 338 (160-400) X10*3/uL MPV 8.9 L (9.4-12.4) fL Immature Gran % (Auto) 0.5 H (0.0-0.4) % Neut % (Auto) 65.4 (45-73) % Lymph % (Auto) 26.3 (20-40) % Cooper % (Auto) 7.0 (2-11) % Eos % (Auto) 0.4 (0-4) % Baso % (Auto) 0.4 (0-2) % Lymph # (Auto) 3.4 (1.2-4.9) X10*3/uL Cooper # (Auto) 0.9 (0.1-1.2) X10*3/uL Eos # (Auto) 0.1 (0.0-0.4) X10*3/uL Baso # (Auto) 0.1 (0.0-0.2) X10*3/uL Abs Immat Gran (auto) 0.07 H (0.00-0.03) X10*3/uL Absolute Neuts (auto) 8.4 H (2.0-8.3) x10*3/uL Absolute Nucleated RBC 0.000 (0.0-0.012) X10*3/uL Nucleated RBC % (auto) 0.0 (0.0-0.2) /100WBC Sodium 143 (135-145) mmol/L Potassium 3.3 (3.3-5.1) mmol/L Chloride 111 H (96-108) mmol/L Carbon Dioxide 21 L (22-29) mmol/L Anion Gap 14 (12-20) BUN 15 (9-16) mg/dL Creatinine 1.14 (0.5-1.4) mg/dL Estim Creat Clear Calc 98.2 Estimated GFR > 60 Random Glucose 127 H (60-115) mg/dL Calcium 9.8 D (8.4-10.2) mg/dL Total Bilirubin 1.2 H (0.0-1.0) mg/dL AST 22 (5-37) U/L ALT 28 (0-40) U/L Alkaline Phosphatase 116 (39-117) U/L Troponin I High Sens 3.6 (<3.5-35.0) ng/L Total Protein 7.0 (6.5-8.0) g/dL Albumin 4.4 (3.5-5.0) g/dL Independent Interpretation I performed an independent interpretation of an: EKG Interpretation: Normal sinus rhythm, HR-84, no STEMI, SC/QRS/QTC is within normal limits. Radiology Impression Discussion of test interpretation with radiology: I have reviewed the radiologist's reading. Radiologist Impression: Please see the discussion above External Record Review External record reviewed: Outpatient record, Prior outpatient labs and Prior outpatient radiology Chronic Conditions Patient?s care impacted by: Diabetes Critical Care Time Critical Care Time Critical Care Time: Yes Total Critical Care Time: 30 Attestation: I personally attest to this time spent taking care of the patient. Discharge Plan Discharge Clinical Impression: Anxiety attack, Atypical chest pain Patient Disposition: Home, Self-Care Instructions: Anxiety (ED) Additional Instructions: 1. Resume all home medications as prescribed, specifically I highly recommend that you utilize the propranolol when you experience some of the symptoms. 2. Do not hesitate to return to the ER Prescriptions: No Action losartan 50 mg tablet 1 tab PO DAILY citalopram 20 mg tablet 1 tab PO DAILY amlodipine 10 mg tablet 1 tab PO DAILY atorvastatin 40 mg Tablet 60 mg PO BEDTIME Qty: 90 0RF aspirin 81 mg Tablet,Delayed Release (Dr/Ec) 81 mg PO BEDTIME Qty: 30 0RF Referrals: Dejan Gaona MD [Primary Care Provider] - Print Language: Hungarian
[2023-09-08 22:10] VITALS: BP 144/96; PULSE 89; RESP 16; TEMP 36.7; O2SAT 98
[2023-09-08 22:11] VITALS: BP 144/96; PULSE 89; RESP 16; TEMP 36.7; O2SAT 98
== END 2023-09-08 22:11 | disposition home or self-care (01) ==
PROVIDERS: Emergency Provider Student in an Organized Health Care Education/Training Program; PCP Internal Medicine
DX: F41.0 Panic disorder [episodic paroxysmal anxiety] (principal); R07.89 Other chest pain; R06.02 Shortness of breath; I10 Essential (primary) hypertension; J45.909 Unspecified asthma, uncomplicated; Z79.82 Long term (current) use of aspirin; Z79.02 Long term (current) use of antithrombotics/antiplatelets; Z79.899 Other long term (current) drug therapy
CPT/HCPCS: 36415; 71045; 80053; 84484; 85025; 93005; 99283; 99285

== ENCOUNTER → 2023-09-08 19:51 | Outpatient (BNV) | payer OTHER, SELFPAY | PROVIDERS: Emergency Provider Student in an Organized Health Care Education/Training Program; PCP Internal Medicine; Visit Provider Internal Medicine Cardiovascular Disease | DX: R07.9 Chest pain, unspecified (principal); R06.02 Shortness of breath | CPT/HCPCS: 93010 ==